=== PATIENT | female | born 1985 | race Caucasian/White ===

== ENCOUNTER 2022-09-05 08:13 | Day surgery (SDC) | payer MEDICAID ==
[2022-08-30 15:42] LABS: BASOPHILS # (AUTO) 0.1 X10'3 (0-0.2); BASOPHILS % (AUTO) 0.6 % (0-1); EOSINOPHILS # (AUTO) 0.2 X10'3 (0-0.9); EOSINOPHILS % (AUTO) 2.1 % (0-6); LYMPHOCYTES # (AUTO) 2.4 X10'3 (1.1-4.8); LYMPHOCYTES % (AUTO) 28.2 % (21-51); MEAN CORPUSCULAR HEMOGLOBIN 30.1 PG (27.0-31.0); MEAN CORPUSCULAR VOLUME 88.6 FL (78-98); MEAN PLATELET VOLUME 7.6 FL (7.4-10.4); MONOCYTES # (AUTO) 0.7 X10'3 (0-0.9); MONOCYTES % (AUTO) 8.4 % (2-12); NEUTROPHILS # (AUTO) 5.3 X10'3 (1.8-7.7); NEUTROPHILS % (AUTO) 60.7 % (42-75); PRE OP HEMOGLOBIN 13.6 g/dL (12.0-16.0); PRE OP PLATELET COUNT 241 X10'3 (140-440); RED BLOOD COUNT 4.52 X10'6 (4.20-5.60)
[2022-08-30 15:51] LABS: CLARITY,URINE CLOUDY (Clear); COLOR,URINE YELLOW (Yellow); GLUCOSE, URINE NEGATIVE (Neg); KETONES,URINE TRACE mg/dl (Neg); LEUKOCYTE ESTERASE ,URINE NEGATIVE (Neg); NITRITES, URINE NEGATIVE (Neg); OCCULT BLOOD,URINE NEGATIVE (Neg); PH,URINE 7.5 (4.8-8.0); PROTEIN,URINE NEGATIVE (Neg); UROBILINOGEN,URINE 0.2 E.U/dL (0.2-1.0)
[2022-08-30 15:54] LABS: HCG SERUM QL NEGATIVE
[2022-08-30 15:55] LABS: UA COLLECTION TYPE CLN CATCH MIDSTREAM
[2022-08-30 16:00] LABS: ALBUMIN/GLOBULIN RATIO 1.3 (1.1-1.5); ALKALINE PHOSPHATASE 47 IU/L (46-116); BLOOD UREA NITROGEN 15 MG/DL (7-18); BUN/CREATININE RATIO 14.4 (6.6-38.0); CALCIUM 8.4 MG/DL (8.5-10.1); CHLORIDE 106 MMOL/L (99-107); CREATININE 1.04 MG/DL (0.40-0.90); PRE OP ALT 17 U/L (30-65); PRE OP ANION GAP 8 (8-16); PRE OP AST 18 U/L (10-37); PRE OP BILIRUB, TOTAL 0.3 MG/DL (0.0-1.0); PRE OP GLUCOSE 86 MG/DL (70-104); PRE OP POTASSIUM 4.3 MMOL/L (3.4-5.1); PRE OP SODIUM 139 MMOL/L (135-145); TOTAL CARBON DIOXIDE 24.6 MMOL/L (24-32); TOTAL PROTEIN 7.1 G/DL (6.4-8.2); eGFR 60 ML/MIN
[2022-08-30 16:05] LABS: AMORPHOUS URATES 3+; BACTERIA,URINE FEW /HPF (Neg); MUCUS STRANDS NONE SEEN /LPF (Neg); RBC,URINE NONE SEEN /HPF (0-2); SQUAMOUS EPITHELIAL CELL,UR MODERATE /LPF (FEW); WBC,URINE 0-4 /HPF (0-4)
[2022-09-05] VITALS (25 sets, daily range): BP systolic 104–127; BP diastolic 47–78
[~2022-09-05] VITALS: Ht 170.2 cm; Wt 65.2 kg
[~2022-09-05 08:13] MED LIST: ACET-2119 PO; ceFOXitin 2GM-NS 100mL ADDvant 100 ML IV ONE; famotidine 20mg tablet PO ONE; ringers solution, lacted 1,000 ML IV SCH
[2022-09-05] MEDS ORDERED: morphine 4 MG/ML inj SYRINge IV PRN ×2 (08:35→19:20)
[2022-09-05] MEDS ORDERED: ringers solution, lacted 1,000 ML IV SCH (08:35)
[2022-09-05] MEDS ORDERED: ondansetron/PF 4mg/2ml inj IV PRN ×2 (08:35→11:40)
[2022-09-05] MEDS ORDERED: morphine 2 MG/ML inj. syringe IV PRN (08:35)
[2022-09-05] MEDS ORDERED: proCHLORperazine 10 MG/2 ml inj IV PRN (08:35)
[2022-09-05] MEDS ORDERED: meperidine/PF 25mg/ml syringe IV PRN ×2 (08:35)
[2022-09-05] MEDS ORDERED: neomy sulf/polymyxin B sulf. GU irrigation 1ml amp IR ONE (08:49)
[2022-09-05] MEDS ORDERED: BUPIVAcaine/PF 2.5 mg/ml (0.25%) 30ml vial ONE (08:49)
[2022-09-05] MEDS ORDERED: clindamycin phosphate 40gm vag cream ONE (08:49)
[2022-09-05] MEDS ORDERED: vasoPRESSIN 20 units/ml inj. ONE ×2 (08:50→10:15)
[2022-09-05] MEDS ORDERED: midazolam 1 mg/ML 2ml injection ONE (10:07)
[2022-09-05] MEDS ORDERED: fentaNYL /PF 50mcg/ml 5ml ampule ONE (10:08)
[2022-09-05] MEDS ORDERED: ondansetron/PF 4mg/2ml inj ONE (10:24)
[2022-09-05] MEDS ORDERED: propofol inj 20 ML IV ONE (10:24)
[2022-09-05] MEDS ORDERED: rocuronium 10mg/ml inj IV ONE (10:24)
[2022-09-05] MEDS ORDERED: LIDOcaine 2% (20mg/ml) 5ml vial ONE (10:24)
[2022-09-05] MEDS ORDERED: ketorolac trometh. 30mg/ml inj. ONE (11:39)
[2022-09-05] MEDS ORDERED: LORazepam 2 mg/ml vial IV PRN (11:40)
[2022-09-05] MEDS ORDERED: temazepam 15mg capsule PO PRN (11:40)
[2022-09-05] MEDS ORDERED: magnesium hydroxide 30ml (MOM) UD suspension PO PRN (11:40)
[2022-09-05] MEDS ORDERED: normal saline 500ml IV soln 500 ML IV PRN (11:40)
[2022-09-05] MEDS ORDERED: metoclopramide 5 mg/ml inj IV PRN (11:40)
[2022-09-05] MEDS ORDERED: diphenhydrAMINE 50 mg/ml inj IV PRN (11:40)
[2022-09-05] MEDS ORDERED: neostigmine methylsulfate 1 MG/ML 10ml vial ONE (11:48)
[2022-09-05] MEDS ORDERED: glycopyrrolate 0.2mg/ml inj ONE (11:48)
--- NOTE | 2022-09-05 11:59 | NUR ---
Received from OR via HOSPITAL BED , accompanied by Anesthesiologist DR RODRIGUEZ and report given by Anesthesiolgist. PT PRESENTS WITH PIV 20G RIGHT AC, PER FRANCISCO PALMA, RUTHIES. Addendum: 09/05/22 at 1229 by Paola Richardson RN, RN Amended: Links added.
[2022-09-05] MEDS: ketorolac trometh. 30mg/ml inj. IV PRN ×2 (12:16→17:58)
[2022-09-05] MEDS: meperidine/PF 25mg/ml syringe IV PRN ×3 (12:16→12:56)
--- NOTE | 2022-09-05 13:09 | NUR ---
PT WAS ASKED IF SHE WOULD LIKE TO GO HOME TODAY, PT REQUESTING TO STAY THE NIGHT. PT REPORTS ABD PAIN 04/28.
--- NOTE | 2022-09-05 13:39 | NUR ---
Report called to receiving nurse PAULINO CUBA. Transferred via HOSPITAL BED TO ROOM 358B. BED IN LOW LOCKED POSITION, CALL LIGHT IN REACH, PT HOOKES UP TO VITALS MONITOR. TWO PT BELONGINGS BAG TO ROOM 358B WITH PT. Special Issues communicated to receiving nurse. Addendum: 09/05/22 at 1435 by Paola Richardson RN, RN Amended: Links added.
[2022-09-05] MEDS: ringers solution, lacted 1,000 ML IV SCH ×2 (14:13→17:41)
[2022-09-05] MEDS: HYDROcodone/acetaminophen 10/325mg tab PO PRN ×2 (15:02→22:45)
--- NOTE | 2022-09-05 18:08 | NUR ---
Problems reprioritized. Patient report given, questions answered & plan of care reviewed with TRUDI CUBA.
--- NOTE | 2022-09-05 19:24 | NUR ---
Patient in room [facility] 358. I have received report from Tanya CUBA and had the opportunity to ask questions and assume patient care.
[2022-09-05] MEDS: morphine 2 MG/ML inj. syringe IV PRN (19:30)
[2022-09-05] MEDS: docusate sod 100mg capsule PO SCH (19:30)
[2022-09-06] MEDS: ringers solution, lacted 1,000 ML IV SCH ×2 (01:52→11:16)
[2022-09-06] MEDS: morphine 2 MG/ML inj. syringe IV PRN ×2 (02:19→06:38)
--- NOTE | 2022-09-06 06:06 | NUR ---
patient c/o pain on inital assessmet, stated toradol didnt seem to be working for her. Dr Thorne called with regards other pain relief. morphine ordered and administered x2 with good effect. IS given too patient, and patient ambulated with staff 300' with minimal assistance. Minimal drainage observed on peripad. Report given to teresa CUBA
[2022-09-06] MEDS: docusate sod 100mg capsule PO SCH (06:38)
[2022-09-06 06:47] LABS: BASOPHILS % (AUTO) 0.5 % (0-1); EOSINOPHILS % (AUTO) 0.4 % (0-6); HEMATOCRIT 37.1 % (35.0-45.0); HEMOGLOBIN 12.8 g/dl (12.0-16.0); LYMPHOCYTES # (AUTO) 1.8 X10'3 (1.1-4.8); LYMPHOCYTES % (AUTO) 18.6 % (21-51); MEAN CORPUSCULAR HEMOGLOBIN 30.3 PG (27.0-31.0); MEAN CORPUSCULAR HGB CONC 34.4 g/dL (33.0-36.5); MEAN CORPUSCULAR VOLUME 88.1 FL (78-98); MEAN PLATELET VOLUME 7.6 FL (7.4-10.4); MONOCYTES # (AUTO) 0.7 X10'3 (0-0.9); MONOCYTES % (AUTO) 7.5 % (2-12); NEUTROPHILS # (AUTO) 6.9 X10'3 (1.8-7.7); PLATELET COUNT 220 X10'3 (140-440); RED BLOOD COUNT 4.21 X10'6 (4.20-5.60); RED CELL DISTRIBUTION WIDTH 12.9 % (11.5-14.5); WHITE BLOOD COUNT 9.4 X10'3 (4.5-11.0)
[2022-09-06 07:00] VITALS: BP 99/54
[2022-09-06 07:00] LABS: ALBUMIN 3.2 G/DL (3.4-5.0); ANION GAP 10 (8-16); BLOOD UREA NITROGEN 7 MG/DL (7-18); BUN/CREATININE RATIO 8.3 (6.6-38.0); CALCIUM 8.4 MG/DL (8.5-10.1); CHLORIDE 105 MMOL/L (99-107); CREATININE 0.84 MG/DL (0.40-0.90); GLUCOSE 93 MG/DL (70-104); SODIUM 139 MMOL/L (135-145); TOTAL CARBON DIOXIDE 24.1 MMOL/L (24-32); eGFR 77 ML/MIN
[2022-09-06] MEDS: HYDROcodone/acetaminophen 10/325mg tab PO PRN ×2 (10:13→14:13)
[2022-09-06 11:00] VITALS: BP 91/58
--- NOTE | 2022-09-06 14:19 | NUR ---
PATIENT STABLE AND APPROPRIATE FOR DISCHARGE HOME. IV REMOVED. ALL BELONGINGS TAKEN FROM ROOM. ALL DISCHARGE INSTRUCTIONS AND EDUCATION GIVEN AND REVIEWED WITH PATIENT AND , ALL QUESTIONS ANSWERED.
== END 2022-09-06 14:20 | disposition home or self-care (01) ==
LOC: PAS 08:13 → SUR 3N 11:39 → PAS IN 11:39 → PAS 09-06 14:20
PROVIDERS: ATTEND Obstetrics & Gynecology Obstetrics
DX: N94.6 Dysmenorrhea, unspecified (principal); G89.29 Other chronic pain; R10.2 Pelvic and perineal pain; N83.8 Other noninflammatory disorders of ovary, fallopian tube and broad ligament; Z79.899 Other long term (current) drug therapy; Z98.890 Other specified postprocedural states
CPT/HCPCS: 36415; 58552; 80048; 80053; 81001; 82948; 84703; 85025; 86885; 86900; 86901; J0694; J1885; J2175; J2250; J2270; J2405; J2704; J2710; J3010; J3490; J7030; J7120; Z7506; Z7508; Z7512; A4314; A4618; A7000; G0378

== ENCOUNTER 2025-01-07 09:03 | Emergency (ER) | payer MEDICAID, SELFPAY ==
[~2025-01-07] VITALS: Ht 170.2 cm; Wt 68.3 kg
[~2025-01-07 09:03] MED LIST changes: -ceFOXitin 2GM-NS 100mL ADDvant 100 ML IV ONE; -famotidine 20mg tablet PO ONE; -ringers solution, lacted 1,000 ML IV SCH
[2025-01-07 09:06] VITALS: TEMP 98.2
[2025-01-07 10:00] VITALS: BP 154/93; PULSE 97; O2SAT 95
[2025-01-07] MEDS: normal saline 1000ML IV soln IVB ONE (10:07)
[2025-01-07] MEDS ORDERED: ketorolac trometh 30MG/ML vial 30 MG/ML VIAL IV ONE (10:15)
[2025-01-07 10:24] LABS: BASOPHILS # (AUTO) 0.1 X10'3 (0-0.2); BASOPHILS % (AUTO) 0.9 % (0-1); EOSINOPHILS # (AUTO) 0.4 X10'3 (0-0.9); EOSINOPHILS % (AUTO) 6.3 % (0-6); HEMATOCRIT 40.4 % (35.0-45.0); LYMPHOCYTES # (AUTO) 1.6 X10'3 (1.1-4.8); LYMPHOCYTES % (AUTO) 22.3 % (21-51); MEAN CORPUSCULAR HEMOGLOBIN 30.7 PG (27.0-31.0); MEAN CORPUSCULAR HGB CONC 34.6 g/dL (33.0-36.5); MEAN CORPUSCULAR VOLUME 88.8 FL (78-98); MEAN PLATELET VOLUME 7.1 FL (7.4-10.4); MONOCYTES # (AUTO) 0.5 X10'3 (0-0.9); MONOCYTES % (AUTO) 7.6 % (2-12); NEUTROPHILS # (AUTO) 4.4 X10'3 (1.8-7.7); NEUTROPHILS % (AUTO) 62.9 % (42-75); PLATELET COUNT 228 X10'3 (140-440); RED BLOOD COUNT 4.56 X10'6 (4.20-5.60); RED CELL DISTRIBUTION WIDTH 12.6 % (11.5-14.5)
[2025-01-07] MEDS: ketorolac trometh 15mg/ml vial 15 MG/ML ML IV ONE (10:52)
[2025-01-07] MEDS: dexamethasone sod phosphate 10mg/ml inj IV STA (10:52)
[2025-01-07 11:00] LABS: ALBUMIN 3.9 G/DL (3.4-5.0); ANION GAP 6 (8-16); BLOOD UREA NITROGEN 8 MG/DL (7-18); BUN/CREATININE RATIO 11.3 (10.0-20.0); CALCIUM 8.5 MG/DL (8.5-10.1); CHLORIDE 106 MMOL/L (99-107); CREATININE 0.71 MG/DL (0.40-0.90); GLUCOSE 80 MG/DL (70-104); POTASSIUM 4.1 MMOL/L (3.5-5.1); SODIUM 141 MMOL/L (135-145); TOTAL CARBON DIOXIDE 29.2 MMOL/L (24-32); eCRCL 103 ML/MIN; eGFR > 90 ML/MIN
[2025-01-07 11:38] VITALS: RESP 16
== END 2025-01-07 11:41 | disposition home or self-care (01) ==
LOC: ER 09:03
DX: G43.909 Migraine, unspecified, not intractable, without status migrainosus (principal); Z90.710 Acquired absence of both cervix and uterus
CPT/HCPCS: 36415; 70450; 80048; 85025; 96361; 96374; 96375; 99285; J1100; J1885; J7030